=== PATIENT | female | born 1990 | race Caucasian/White ===

== ENCOUNTER 2016-11-26 14:55 | Inpatient (IN) | payer MEDICAID ==
[2016-11-26] VITALS (12 sets, daily range): BP systolic 128–218; BP diastolic 93–115; PULSE 70–102; RESP 16–18; TEMP 97.4–98.1; O2SAT 98–100
[~2016-11-26 14:55] MED LIST: Z.0.BCPILL
[2016-11-26] MEDS: LACTATED RINGER'S 1000 ML INJ 1,000 ML IV SCH ×5 (15:00→20:34)
[2016-11-26] MEDS ORDERED: SODIUM CHLORIDE 0.9% FLUSH 5 ML FLUSH IVF PRN (15:15)
[2016-11-26] MEDS ORDERED: ZOLPIDEM TARTRATE 5 MG TAB PO PRN (15:15)
[2016-11-26] MEDS ORDERED: ONDANSETRON ODT 4 MG TAB PO PRN (15:15)
[2016-11-26] MEDS ORDERED: LACTATED RINGER'S 1000 ML INJ 1,000 ML IV PRN (15:16)
[2016-11-26] MEDS ORDERED: NIFEdipine 10 MG CAP ONE (15:25)
--- NOTE | 2016-11-26 15:26 | HHI.HP ---
HPI Chief Complaint admission for hellp syndrome Date Seen: Nov 24, 2016 Travel History International Travel<30 Days: No Contact w/Intl Traveler<30Days: No Known Affected Area: No History of Present Illness HPI 26 yo G1 with iup at 36w3 d seen in clinic 2 days ago with c/o ruq pain. Her BP was 124/64, above her baseline, and she had 3+ protein on urine dip. She had in previous weeks had acid reflux but did not note any issues over the last week. She did note ruq pain that was intermitent. She denied JARVIS/vision changes. She had noted some increase in edema. She was given lab slip for PIH labs, amylase and lipase as well as referral for RUQ u/s. Labs resulted today significant for Hgb 10.4, plt 82, UA 7, AST 76, ALT 91, Normal amylase and lipase. Random urine protein 3163 and creatinine 53, markedly elevated protein to cr ration. Serum Cr normal 0.73. Pt was called and told it ws urgent to present for labor and delivery for bp evaluation, repetition of labs, and likely delivery based on assessment on presentation. Para: 0 : 1 History Past Medical History Medical History: Denies Significant Hx Obstetric History Obstetric History G1 abn 1 hour, normal 3 hr gtt Past Surgical History Surgical History: No Previous Surgery Family History Family History: Negative Social History Alcohol Use: No Tobacco Use: No Substance Abuse: No Allergies-Medications (Allergen,Severity, Reaction): Coded Allergies: Shellfish (Verified Allergy, Severe, 11/26/16) Comments self fish allergy Home Meds Reported Medications Miscellaneous ( Control Pills) Tab 09/11/06 Review of Systems General / Constitutional: No: Fever, Weight Gain, Chills, Other Eyes: No: Diploplia, Blurred Vision, Visual changes, Pain, Photophobia HENT: No: Headaches, Vertigo, Lightheadedness Cardiovascular: Edema, No: Irregular Rhythm, Chest Pain or Discomfort, Palpitations, Tachycardia, Syncope, Varicosities, Cyanosis Respiratory: No: Cough, Short of Breath, Other Gastrointestinal: Nausea, Abdominal Pain, No: Vomiting, Diarrhea Genitourinary: No: Decreased Urinary Output, Oliguria Musculoskeletal: No: Limited ROM, Weakness, Cramping, Edema, Pain Skin: No Rash, No Itching, No Dryness, No Lumps, No Change in Pigmentation, No Change in Nails, No Alopecia, No Lesions Neurologic: No: Weakness, Dizziness, Syncope, Focal Abnormalities, Coordination Problem, Headache, Slurred Speech, Seizures Psychiatric: No: Depression, Suicidal Ideations, Homicidal Ideation Endocrine: No: Heat Intolerance, Cold Intolerance, Polydipsia, Polyuria, Other Physical Exam Narrative GENERAL: Well-nourished, well-developed patient. SKIN: Warm and dry. HEAD: Normocephalic and atraumatic. EYES: No scleral icterus. No injection or drainage. ENT: No nasal drainage noted. Mucous membranes pink. Airway patent. NECK: Supple, trachea midline. No JVD. CARDIOVASCULAR: Regular rate and rhythm without murmurs, gallops, or rubs. RESPIRATORY: Breath sounds equal bilaterally. No accessory muscle use. ABDOMEN/GI: Abdomen soft, RUQ tenderness, bowel sounds present, no rebound, no guarding Gravid to36 weeks size GENITOURINARY: External Genitalia: intact and normal in appearance BUS glands: [-] Cervix:25/-3, posterior Presentation:cephalic Membranes: [intact Uterine Contractions: irreg FHT's: Category: I, 130's, + A, neg decel, mod variability, NST in progress Decels: [-] EXTREMITIES: No cyanosis or edema. BACK: Nontender without obvious deformity. No CVA tenderness. NEUROLOGICAL: Awake and alert. Motor and sensory grossly within normal limits. Five out of 5 muscle strength in all muscle groups. Normal speech. Data Data Vital Signs Reviewed: Yes (initial BP 218/115) Orders Admit To Inpatient (11/26/16 ) Diet Npo (11/26/16 Dinner) ^ Heart DAXA.QD (11/26/16 15:13) Activity Bed Rest With Brp (11/26/16 15:13) Total Protein 24hr Urine (11/26/16 15:13) Urinalysis - C+S If Indicated (11/26/16 15:13) Lactated Ringer's 1000 Ml Inj (Lr 1000 M (11/26/16 16:00) Sodium Chloride 0.9% Flush (Ns Flush) (11/26/16 21:00) Sodium Chloride 0.9% Flush (Ns Flush) (11/26/16 15:15) Zolpidem (Ambien) (11/26/16 15:15) Ondansetron Odt (Zofran Odt) (11/26/16 15:15) Ob/Psych Drug Screen, Urine (11/26/16 15:13) Hold Clot (11/26/16 15:13) Inpatient Certification (11/26/16 ) Specimen To Be Collected PRN (11/26/16 15:13) Vital Signs (Adult) .Per protocol (11/26/16 15:16) ^ Heart (11/26/16 15:16) ^ Amnioinfusion (11/26/16 15:16) Urinary Catheter Management .ONCE (11/26/16 15:16) Lactated Ringer's 1000 Ml Inj (Lr 1000 M (11/26/16 15:16) Sodium Chlorid 0.9% 500 Ml Inj (Ns 500 M (11/26/16 15:30) Sodium Chlor 0.9% 1000 Ml Inj (Ns 1000 M (11/26/16 15:36) Lidocaine 1% Inj (50 Ml) (Xylocaine 1% I (11/26/16 15:30) Citric Acid-Sodium Citrate Liq (Bicitra (11/26/16 15:30) Fentanyl Inj (Fentanyl Inj) (11/26/16 15:30) Fentanyl Inj (Fentanyl Inj) (11/26/16 15:30) Abo/Rh Blood Type (11/26/16 15:16) Type And Screen (11/26/16 15:16) Resp Oxygen Non Rebreathe Mask (11/26/16 ) ^ Epidural / Intrathecal Infus (11/26/16 15:16) Oxytocin 30 Units-500ml Premix (Pitocin (11/26/16 15:30) Lidocaine 1% Inj (50 Ml) (Xylocaine 1% I (11/26/16 15:30) Light Mineral Oil (Muri-Lube Oil) (11/26/16 15:30) Protein Creat Ratio, Random Ur (11/26/16 15:17) Basic Metabolic Panel (Bmp) (11/26/16 15:19) Complete Blood Count With Diff (11/26/16 15:19) Creatinine 24 Hr Urine (11/26/16 15:19) Hepatic Functional Panel (11/26/16 15:19) Uric Acid (11/26/16 15:19) Assessment/Plan Assessment and Plan 26 yo G1 with iup at 36w3d admitted to L&D with HELLP syndrome. Outpatient labs significant for Elevated liver enzymes, uric acid, P:C, and low platelets. She additionally has severe bp now. Pt evaluated by Dr. Novak on L&D; discussed BP and abn labs, discussed proceeding with CD given severity of HELLP syndrome. Pt in agreement with plan of care. L&D, nursery and anesthesia made aware of plan; preoperative medications ordered. Based on results of platelets, may need general anesthesia Simran Perez MD Nov 26, 2016 15:26
[2016-11-26] MEDS ORDERED: MINERAL OIL 10 ML VIAL TOPICAL PRN (15:30)
[2016-11-26] MEDS ORDERED: LIDOCAINE HCL 1% 50 ML VIAL INFIL PRN (15:30)
[2016-11-26] MEDS ORDERED: OXYTOCIN 30 UNITS-500ML PREMIX 500 ML IV ONE ×2 (15:30→17:00)
[2016-11-26] MEDS ORDERED: SODIUM CHLORID 0.9% 500 ML INJ 500 ML IV PRN (15:30)
[2016-11-26] MEDS ORDERED: CITRIC ACID-SODIUM CITRATE LIQ 30 ML UDC PO SCH ×2 (15:30→17:00)
[2016-11-26] MEDS ORDERED: LIDOCAINE HCL 1% 50 ML VIAL I-DERMAL PRN (15:30)
[2016-11-26] MEDS ORDERED: ceFAZolin INJ 1,000 MG VIAL ONE (15:31)
[2016-11-26] MEDS ORDERED: OXYTOCIN 10 UNIT/ML AMP ONE (15:31)
[2016-11-26] MEDS ORDERED: SODIUM CHLOR 0.9% 1000 ML INJ 1,000 ML IV PRN (15:36)
[2016-11-26 15:42] LABS: AUTOMATED NEUTROPHIL # 8.1 TH/MM3 (1.8-7.7); BASOPHIL # 0.1 TH/MM3 (0-0.2); BASOPHIL % 0.5 % (0.0-2.0); EOSINOPHIL # 0.1 TH/MM3 (0-0.4); EOSINOPHIL % 1.1 % (0.0-4.0); HEMATOCRIT 36.4 % (35.0-46.0); HEMO FLAGS DIFF FINAL; LYMPH % 20.7 % (9.0-44.0); LYMPHOCYTE # 2.4 TH/MM3 (1.0-4.8); MEAN CELL VOLUME 85.1 FL (80.0-100.0); MEAN CORPUSCULAR HEMOGLOBIN 28.6 PG (27.0-34.0); MEAN CORPUSCULAR HGB CONC 33.6 % (32.0-36.0); MONO % 7.6 % (0.0-8.0); NEUT % 70.1 % (16.0-70.0); PLATELET COUNT 105 TH/MM3 (150-450); RED BLOOD COUNT 4.28 MIL/MM3 (4.00-5.30); RED CELL DISTRIBUTION WIDTH 15.4 % (11.6-17.2); WHITE BLOOD COUNT 11.6 TH/MM3 (4.0-11.0)
[2016-11-26 15:45] LABS: BACTERIA, URINE FEW /hpf; BLOOD, URINE SMALL (NEG); GLUCOSE,URINE NEG (NEG); HYALINE CAST, URINE 1 /lpf (RARE); KETONE, URINE NEG (NEG); NITRITE,URINE NEG (NEG); SQUAMOUS EPITHELIAL CELL URINE 15 /hpf (0-5); URINE COLOR YELLOW (YELLW/STRAW)
[2016-11-26] MEDS ORDERED: LACTATED RINGER'S 1000 ML INJ 1,000 ML IV ONE (15:45)
[2016-11-26 15:47] LABS: COMMENT (UR) CULT NOT INDICATED; CULTURE IF INDICATED CULT NOT INDICATED
[2016-11-26 15:49] LABS: AMPHETAMINE, URINE NEG (NEG); BARBITURATES, URINE NEG (NEG); COCAINE, URINE NEG (NEG)
[2016-11-26 15:55] LABS: BICARBONATE 21.7 MEQ/L (21.0-32.0); POTASSIUM 4.5 MEQ/L (3.5-5.1); URIC ACID 6.8 MG/DL (2.6-6.0)
[2016-11-26 15:58] LABS: INDIRECT BILIRUBIN 0.2 MG/DL (0.0-0.8); TOTAL BILIRUBIN ADULT 0.3 MG/DL (0.2-1.0)
[2016-11-26] MEDS ORDERED: EPIDURAL-NALOXONE HCL 0.4 MG/ML AMP IV PRN (15:58)
[2016-11-26] MEDS ORDERED: EPIDURAL-DIPHENHYDRAMINE HCL 50 MG CAP PO PRN (15:58)
[2016-11-26] MEDS ORDERED: EPIDURAL-DO NOT ADMINISTER ANTICOAGULANTS XX PRN (15:58)
[2016-11-26] MEDS ORDERED: EPIDURAL-DIPHENHYDRAMINE HCL 50 MG/ML VIAL IV PUSH PRN (15:58)
[2016-11-26] MEDS ORDERED: EPIDURAL-NO SYSTEMIC NARCOTICS XX PRN (15:58)
--- NOTE | 2016-11-26 16:59 | PD.OB.DELI ---
Procedure Note Section Procedure Performed by Shiva Novak Procedure: Primary Low Transverse Sec Indication for delivery: Maternal medical problems (HELLP) Informed consent obtained: For anesthesia, For procedure Confirmed correct: Patient, Procedure, Time-out taken Anesthesia: Spinal Medication prior to procedure: As documented in eMAR Monitoring during procedure: Blood pressure monitoring, phototypesetting equipment monitor, doppler, Pulse oximetry Urinary catheter: Inserted using sterile technique, To dependent drainage Operative Features Skin Incision: Pfannenstiel Uterine Incision: Low transverse w/knife / scissors Membranes Ruptured: Artificially Presentation: Occiput anterior Delivery of infant: Uneventful : Female One Minute : 8 Five Minute : 9 Weight: 2540 GM Status of : Viable, Cord blood Placenta delivered: Intact, Sent to pathology Medications: Antibiotics, Oxytocin Procedure tolerated: Well Maternal Condition: Stable Condition: Stable Shiva Novak MD Nov 26, 2016 16:59
[2016-11-26] MEDS ORDERED: oxyCODONE/ACETAMINOPHEN 5 MG/325 MG TAB PO PRN ×2 (17:00)
[2016-11-26] MEDS ORDERED: DOCUSATE SODIUM 50 MG/SENNA 8.6 MG TAB PO PRN (17:00)
[2016-11-26] MEDS ORDERED: SIMETHICONE 80 MG CHEWABLE TAB PO PRN (17:00)
[2016-11-26] MEDS ORDERED: SODIUM CHLORIDE 0.9% FLUSH 5 ML FLUSH IV PRN ×2 (17:00)
[2016-11-26] MEDS ORDERED: ONDANSETRON HCL 4 MG/2 ML VIAL IV PUSH PRN (17:00)
[2016-11-26] MEDS ORDERED: CALCIUM GLUCONATE 10% 1 GM/10 ML VIAL IV PUSH PRN (17:00)
[2016-11-26] MEDS ORDERED: MORPHINE SULFATE PF 5 MG/10 ML VIAL ONE (17:11)
[2016-11-26] MEDS ORDERED: ONDANSETRON HCL 4 MG/2 ML VIAL ONE (17:12)
[2016-11-26] MEDS ORDERED: MAGNESIUM SULFATE 40 GM PREMIX 1,000 ML ONE (17:17)
[2016-11-26] MEDS: MAGNESIUM SULFATE 40 GM PREMIX 1,000 ML IV SCH (17:22)
[2016-11-26] MEDS ORDERED: LABETALOL HCL 100 MG/20 ML VIAL IV PUSH PRN (18:00)
--- NOTE | 2016-11-26 19:26 | MP ---
cc: SHIVA MATHEW M.D. DATE OF SURGERY: 11/26/2016. PREOPERATIVE DIAGNOSIS: The patient is 36 weeks gestation with HELP syndrome, elevated liver enzymes, low platelets, hypertension and proteinuria. POSTOPERATIVE DIAGNOSIS: The patient is 36 weeks gestation with HELP syndrome, elevated liver enzymes, low platelets, hypertension and proteinuria. OPERATION: Primary low transverse delivery of a viable female . SURGEON: Shiva Mathew MD. ANESTHESIA: Spinal. ESTIMATED BLOOD LOSS: 700 cc. DRAINS: Cortez to gravity. OPERATIVE FINDINGS: 1. Female infant delivered from ROT position. No nuchal cord entanglement. Clear fluid. Intact placenta. 2. Normal uterus, ovaries and adnexa. 3. The baby's Apgars were 8 at one minute and 9 at five. The baby weighed 2450 grams. INDICATIONS FOR THE PROCEDURE: The patient was seen in the office for concerns for pre-eclampsia. Laboratory evaluation included platelet count, which was 80. AST and ALT were elevated along with her uric acid and elevated urine protein. The patient was called at home to come emergently to the hospital for re-evaluation upon which the patient's blood pressure was 210/114, platelets were ordered emergently and returned 105. The patient had severe right upper quadrant pain. heart rate tracing was category I given the findings, the patient was 1 cm primigravida, and primary section was recommended and the patient agreed. DESCRIPTION OF THE PROCEDURE IN DETAIL: The patient received Ancef 2 grams prophylactically. She went back in stable condition with improved blood pressure after administration of Procardia. She had a spinal anesthetic placed without complication and a good result. Blood pressures normalized. She had a Cortez catheter inserted by sterile technique and sequentials placed all extremities for VTE prophylaxis. She was then prepped and draped. A time-out was conducted and agreed by all present in the room. The patient had excellent result with her anesthetic. No significant pain complaints. She was alert and oriented. A Pfannenstiel's incision was utilized and it was carried through the skin down through the subcutaneous layer identifying the fascia in the midline and extending the midline incision laterally on the fascia and allowing dissection of the rectus fascia from the muscle. The muscle was in the midline sharply. Peritoneum was easily identified and opened sharply. The incision was extended bluntly. The bladder blade was placed over the pubic symphysis. A transverse incision was made in the lower uterine segment without difficulty. Clear fluid was noted. The incision was extended allowing delivery of the vertex. The infant was delivered in toto with good tone and cry. Oropharyngeal suction was performed on the operative field. The infant was taken to the isolette by the NICU staff in attendance. Cord segment was obtained for cord blood type and then the placenta was removed intact with trailing membranes. No retained tissue was noted. The uterus was katie with the use of IV Pitocin. The uterus was closed with a double layer. The first layer was a running locking suture of 0 Monocryl followed by a second imbricating suture of 0 Monocryl with good result. No active bleeding. No hematoma. The pelvis was irrigated. All free blood and clot was removed. Re-examination demonstrated good closure and hemostasis. Full count was made and correct. The peritoneal layer was then closed with a running suture of 2-0 Monocryl. Muscle was approximated loosely with an interrupted mattress suture just above the pyramidalis muscle and then the fascia was closed with a #0 Vicryl in a simple running fashion. The subcutaneous layer was examined. Any active bleeding was cauterized and then it was closed reapproximating the space with a 2-0 Monocryl. Ricardo were used to reapproximate the skin edge only. A pressure dressing was applied. Final count was correct. The patient was stable. The was taken to the NICU in stable condition on room air. MD HAFSA Craven/LUDMILA /5:09 PM /7:14 PM
[2016-11-26] MEDS ORDERED: LABETALOL HCL 200 MG TAB PO ONE (19:45)
[2016-11-26] MEDS: SODIUM CHLORIDE 0.9% FLUSH 5 ML FLUSH IV SCH (20:33)
[2016-11-26] MEDS ORDERED: SODIUM CHLORIDE 0.9% FLUSH 5 ML FLUSH IV SCH (21:00)
[2016-11-26] MEDS ORDERED: SODIUM CHLORIDE 0.9% FLUSH 5 ML FLUSH IVF SCH (21:00)
[2016-11-27] VITALS (19 sets, daily range): BP systolic 128–155; BP diastolic 80–98; PULSE 64–76; RESP 16–18; TEMP 97.7–99.6
[2016-11-27] MEDS ORDERED: OXYTOCIN 30 UNITS-500ML PREMIX 500 ML IV PRN (03:00)
[2016-11-27] MEDS: LACTATED RINGER'S 1000 ML INJ 1,000 ML IV SCH ×8 (06:19→23:46)
[2016-11-27] MEDS: LABETALOL HCL 200 MG TAB PO SCH ×2 (08:49→20:29)
[2016-11-27 09:55] LABS: AUTOMATED NEUTROPHIL # 9.5 TH/MM3 (1.8-7.7); BASOPHIL % 0.4 % (0.0-2.0); EOSINOPHIL % 0.3 % (0.0-4.0); HEMATOCRIT 26.9 % (35.0-46.0); LYMPH % 14.5 % (9.0-44.0); LYMPHOCYTE # 1.7 TH/MM3 (1.0-4.8); MEAN CELL VOLUME 84.5 FL (80.0-100.0); MEAN CORPUSCULAR HEMOGLOBIN 28.5 PG (27.0-34.0); MEAN CORPUSCULAR HGB CONC 33.8 % (32.0-36.0); MONO % 5.1 % (0.0-8.0); NEUT % 79.7 % (16.0-70.0); PLATELET COUNT 62 TH/MM3 (150-450); RED BLOOD COUNT 3.19 MIL/MM3 (4.00-5.30); RED CELL DISTRIBUTION WIDTH 15.4 % (11.6-17.2); WHITE BLOOD COUNT 11.9 TH/MM3 (4.0-11.0)
[2016-11-27 09:58] LABS: HEMO FLAGS AUTO DIFF
[2016-11-27 10:39] LABS: BICARBONATE 25.1 MEQ/L (21.0-32.0); CALCIUM-PROTEIN CORRECTED 7.9 MG/DL (8.5-10.1); POTASSIUM 4.6 MEQ/L (3.5-5.1); TOTAL BILIRUBIN ADULT 0.3 MG/DL (0.2-1.0)
[2016-11-27 10:44] LABS: SCAN/DIFF AUTO DIFF CONFIRMED
--- NOTE | 2016-11-27 11:37 | HHI.OB ---
Subjective Post Operative Day: 1 Remarks POD#!. HELLP Sx, stable. Denies visual changes or h/a, RUQ pain has resolved Objective Vitals/I&O Vital Signs Date Time Temp Pulse Resp B/P Pulse Ox O2 Delivery O2 Flow Rate FiO2 11/27/16 10:01 64 148/85 11/27/16 10:00 18 11/27/16 09:01 64 149/80 11/27/16 08:41 18 11/27/16 08:01 64 155/88 11/27/16 06:00 75 128/92 11/27/16 05:00 70 142/89 11/27/16 04:00 97.7 16 11/27/16 04:00 64 139/89 11/27/16 03:01 72 137/86 11/27/16 02:01 68 138/87 11/27/16 01:00 64 136/88 11/27/16 00:00 76 142/89 11/26/16 23:01 78 135/103 11/26/16 21:01 102 133/93 11/26/16 20:58 97 128/94 11/26/16 18:45 16 11/26/16 18:41 79 158/99 11/26/16 18:15 97.6 11/26/16 18:00 94 157/107 11/26/16 18:00 97.5 16 98 11/26/16 17:45 86 11/26/16 17:45 97.5 16 153/103 99 11/26/16 17:30 97.4 16 98 11/26/16 17:30 89 153/99 11/26/16 17:07 142/95 11/26/16 17:07 79 18 100 11/26/16 15:24 70 213/110 11/26/16 15:18 98.1 18 11/26/16 15:18 78 218/115 Result Diagram: 11/27/16 0900 11/27/16 09 Objective Remarks GENERAL: Well-nourished, well-developed patient. CARDIOVASCULAR: Regular rate and rhythm without murmurs, gallops, or rubs. RESPIRATORY: Breath sounds equal bilaterally. No accessory muscle use. ABDOMEN/GI: Abdomen soft, non-tender, bowel sounds present. Incision: Clean, dry and intact. Fundus: Firm, non-tender at umbilicus. GENITOURINARY: Light to moderate bleeding. EXTREMITIES: No cyanosis or edema, non-tender, without signs of DVT. Medications and IVs Current Medications Medications (Trade) Dose Ordered Sig/Tierney Route Start Time Stop Time Status Last Admin (Lr 1000 ml Inj) 1,000 ml @ 75 mls/hr [id number] IV 11/26/16 16:00 11/27/16 08:51 (Ambien) 5 mg HS PRN PO 11/26/16 15:15 Ondansetron HCl 4 mg 4 mg Q6H PRN PO 11/26/16 15:15 Lactated Ringer's 1,000 ml @ 3,000 mls/hr Q20M PRN IV 11/26/16 15:16 Sodium Chloride 500 ml @ 1,000 mls/hr ONCE PRN IV 11/26/16 15:30 11/27/16 15:29 (NS 1000 ml Inj) 1,000 ml @ 100 mls/hr Q10H PRN IV 11/26/16 15:36 (fentaNYL INJ) 50 mcg Q1H PRN IV PUSH 11/26/16 15:30 (fentaNYL INJ) 100 mcg Q1H PRN IV PUSH 11/26/16 15:30 Mineral Oil 10 ml 10 ml UNSCH PRN TOPICAL 11/26/16 15:30 Lactated Ringer's 1,000 ml @ 150 mls/hr Q6H40M IV 11/26/16 16:00 11/27/16 08:52 (Lr 1000 ml Inj) 1,000 ml @ 100 mls/hr Q10H IV 11/26/16 21:59 11/27/16 17:58 (Mylicon Chew) 80 mg QID PRN PO 11/26/16 17:00 (Motrin) 600 mg Q6H PRN PO 11/26/16 17:00 (Percocet 5-325 Mg) 1 tab Q4H PRN PO 11/26/16 17:00 (Percocet 5-325 Mg) 2 tab Q4H PRN PO 11/26/16 17:00 (Danii-Colace) 2 tab Q12H PRN PO 11/26/16 17:00 (M-M-R Ii Inj) 0.5 ml ONCE ONCE SQ 11/27/16 16:00 11/27/16 16:01 (Boostrix Inj) 0.5 ml ONCE ONCE IM 11/27/16 16:00 11/27/16 16:01 Ondansetron HCl 4 mg 4 mg Q6H PRN IV PUSH 11/26/16 17:00 (Lr 1000 ml Inj) 1,000 ml @ 75 mls/hr [id number] IV 11/26/16 16:59 (NS Flush) 2 ml UNSCH PRN IV 11/26/16 17:00 IV Flush 2 ml 2 ml BID IV 11/26/16 21:00 (Magnesium Sulfate 40 Gm Premix) 1,000 ml @ 50 mls/hr Q20H IV 11/26/16 16:59 11/26/16 17:22 (Calcium Gluconate Inj) 1 gm UNSCH PRN IV PUSH 11/26/16 17:00 (Trandate) 200 mg BID PO 11/27/16 09:00 11/27/16 08:49 Miscellaneous Information NO SYSTEMIC NARCOTICS TO BE GIVEN FO... UNSCH PRN XX 11/26/16 15:58 11/27/16 15:57 (Narcan Inj) 0.4 mg UNSCH PRN IV 11/26/16 15:58 11/27/16 15:57 (Benadryl Inj) 25 mg Q6H PRN IV PUSH 11/26/16 15:58 11/27/16 15:57 (Benadryl) 50 mg Q6H PRN PO 11/26/16 15:58 11/27/16 15:57 Miscellaneous Information ALL NURSING DEPARTMENTS UNSCH PRN XX 11/26/16 15:58 11/27/16 15:57 Assessment/Plan Assessment and Plan POD#1; 36 week ,s/p cd for HELLP Sx. decreased plt ct. @ 60. Discussed continued Mag. Sulfate IV until tomorrow, follow plt.ct Shiva Novak MD Nov 27, 2016 11:37
[2016-11-27] MEDS ORDERED: HYDROmorphone HCL 2 MG TAB PO PRN (11:45)
[2016-11-27] MEDS: MAGNESIUM SULFATE 40 GM PREMIX 1,000 ML IV SCH (13:24)
[2016-11-27 13:47] LABS: HEMATOCRIT 25.8 % (35.0-46.0); MEAN CELL VOLUME 83.2 FL (80.0-100.0); MEAN CORPUSCULAR HEMOGLOBIN 28.9 PG (27.0-34.0); MEAN CORPUSCULAR HGB CONC 34.7 % (32.0-36.0); PLATELET COUNT 66 TH/MM3 (150-450); RED BLOOD COUNT 3.11 MIL/MM3 (4.00-5.30); RED CELL DISTRIBUTION WIDTH 15.1 % (11.6-17.2); WHITE BLOOD COUNT 11.4 TH/MM3 (4.0-11.0)
[2016-11-27 13:49] LABS: REVIEW FLAG FINAL
[2016-11-27] MEDS ORDERED: DIPHTH/TETANUS/ACEL PERTUSSIS (BOOSTER) 0.5 ML VIAL/PFS IM ONE (16:00)
[2016-11-27] MEDS ORDERED: MEASLES, MUMPS, RUBELLA VACCINE 0.5 ML VIAL SQ ONE (16:00)
[2016-11-27] MEDS: SODIUM CHLORIDE 0.9% FLUSH 5 ML FLUSH IV SCH (20:30)
[2016-11-28] VITALS (16 sets, daily range): BP systolic 118–160; BP diastolic 78–101; PULSE 62–81; RESP 16–18; TEMP 98.2–98.5
[2016-11-28 07:15] LABS: AUTOMATED NEUTROPHIL # 9.6 TH/MM3 (1.8-7.7); BASOPHIL % 0.2 % (0.0-2.0); EOSINOPHIL # 0.1 TH/MM3 (0-0.4); EOSINOPHIL % 0.6 % (0.0-4.0); HEMATOCRIT 25.3 % (35.0-46.0); LYMPH % 12.1 % (9.0-44.0); LYMPHOCYTE # 1.4 TH/MM3 (1.0-4.8); MEAN CELL VOLUME 83.5 FL (80.0-100.0); MEAN CORPUSCULAR HEMOGLOBIN 28.7 PG (27.0-34.0); MEAN CORPUSCULAR HGB CONC 34.4 % (32.0-36.0); MONO % 6.1 % (0.0-8.0); PLATELET COUNT 60 TH/MM3 (150-450); RED BLOOD COUNT 3.03 MIL/MM3 (4.00-5.30); RED CELL DISTRIBUTION WIDTH 15.3 % (11.6-17.2); WHITE BLOOD COUNT 11.9 TH/MM3 (4.0-11.0)
[2016-11-28 07:37] LABS: HEMO FLAGS AUTO DIFF
[2016-11-28 07:45] LABS: BICARBONATE 27.7 MEQ/L (21.0-32.0); CALCIUM-PROTEIN CORRECTED 7.5 MG/DL (8.5-10.1); POTASSIUM 4.2 MEQ/L (3.5-5.1); TOTAL BILIRUBIN ADULT 0.3 MG/DL (0.2-1.0)
[2016-11-28] MEDS: amLODIPine BESYLATE 5 MG TAB PO SCH (08:37)
[2016-11-28] MEDS: LABETALOL HCL 200 MG TAB PO SCH ×2 (08:37→21:07)
[2016-11-28] MEDS: LACTATED RINGER'S 1000 ML INJ 1,000 ML IV SCH (08:37)
[2016-11-28 09:22] LABS: BANDS 2 % (0-6); CORRECTED NUCLEATED RBC 1 /100 WBC (0-0); NEUTROPHIL # MANUAL DIFF 9.8 TH/MM3 (1.8-7.7); POLYS (SEG NEUTROPHILS) 80 % (16-70); WBC DIFF SAMPLE 100
[2016-11-28 09:23] LABS: PLATELET ESTIMATE SMEAR LOW (NORMAL); PLATELET MORPHOLOGY NORMAL (NORMAL); SCAN/DIFF FINAL DIFF MANUAL
--- NOTE | 2016-11-28 09:29 | HHI.OB ---
Subjective Post Day: 2 Remarks POD#2, HELLP Sx, stable on Norvasc/Labetalol Objective Vitals/I&O Vital Signs Date Time Temp Pulse Resp B/P Pulse Ox O2 Delivery O2 Flow Rate FiO2 11/28/16 07:13 98.2 11/28/16 07:10 16 11/28/16 07:00 70 160/94 11/28/16 06:00 72 142/93 11/28/16 05:00 70 149/92 11/28/16 04:00 73 135/92 11/28/16 03:00 71 149/94 11/28/16 02:00 77 132/89 11/28/16 01:00 72 128/83 11/27/16 21:40 18 11/27/16 19:53 99.6 11/27/16 19:00 72 141/98 11/27/16 17:02 16 11/27/16 17:00 71 18 150/94 11/27/16 13:11 18 11/27/16 13:00 70 18 152/91 11/27/16 10:01 64 148/85 11/27/16 10:00 18 Objective Remarks GENERAL: Well-nourished, well-developed patient. CARDIOVASCULAR: Regular rate and rhythm without murmurs, gallops, or rubs. RESPIRATORY: Breath sounds equal bilaterally. No accessory muscle use. ABDOMEN/GI: Abdomen soft, non-tender. Fundus: Firm, non-tender at umbilicus. GENITOURINARY: Light to moderate bleeding. EXTREMITIES: No cyanosis or edema, non-tender, without signs of DVT. Medications and IVs Current Medications Medications (Trade) Dose Ordered Sig/Tierney Route Start Time Stop Time Status Last Admin (Lr 1000 ml Inj) 1,000 ml @ 75 mls/hr [id number] IV 11/26/16 16:00 11/28/16 08:37 (Ambien) 5 mg HS PRN PO 11/26/16 15:15 Ondansetron HCl 4 mg 4 mg Q6H PRN PO 11/26/16 15:15 Lactated Ringer's 1,000 ml @ 3,000 mls/hr Q20M PRN IV 11/26/16 15:16 (NS 1000 ml Inj) 1,000 ml @ 100 mls/hr Q10H PRN IV 11/26/16 15:36 (fentaNYL INJ) 50 mcg Q1H PRN IV PUSH 11/26/16 15:30 (fentaNYL INJ) 100 mcg Q1H PRN IV PUSH 11/26/16 15:30 Mineral Oil 10 ml 10 ml UNSCH PRN TOPICAL 11/26/16 15:30 (Lr 1000 ml Inj) 1,000 ml @ 150 mls/hr Q6H40M IV 11/26/16 16:00 11/27/16 08:52 (Mylicon Chew) 80 mg QID PRN PO 11/26/16 17:00 (Motrin) 600 mg Q6H PRN PO 11/26/16 17:00 (Percocet 5-325 Mg) 1 tab Q4H PRN PO 11/26/16 17:00 (Percocet 5-325 Mg) 2 tab Q4H PRN PO 11/26/16 17:00 (Danii-Colace) 2 tab Q12H PRN PO 11/26/16 17:00 Ondansetron HCl 4 mg 4 mg Q6H PRN IV PUSH 11/26/16 17:00 11/27/16 13:23 (Lr 1000 ml Inj) 1,000 ml @ 75 mls/hr [id number] IV 11/26/16 16:59 11/27/16 06:19 (NS Flush) 2 ml UNSCH PRN IV 11/26/16 17:00 (NS Flush) 2 ml BID IV 11/26/16 21:00 (Calcium Gluconate Inj) 1 gm UNSCH PRN IV PUSH 11/26/16 17:00 (Trandate) 200 mg BID PO 11/27/16 09:00 11/28/16 08:37 (Dilaudid) 1 mg Q4H PRN PO 11/27/16 11:45 (Norvasc) 5 mg DAILY PO 11/28/16 09:00 11/28/16 08:37 Assessment/Plan Assessment and Plan POD#2; 36 week ,s/p cd for HELLP Sx. Stable BPR stable on norvasc and labetalol; will advance care,stop mg. sulfate. Discharge Planning does NOT meet criteria Attending Attestation seen by Shiva Rodrigues MD Nov 28, 2016 09:29
[2016-11-28] MEDS: IBUPROFEN 600 MG TAB PO PRN ×2 (10:53→18:46)
[2016-11-29] MEDS: IBUPROFEN 600 MG TAB PO PRN ×2 (05:39→13:58)
[2016-11-29 05:55] LABS: MEAN CELL VOLUME 85.2 FL (80.0-100.0); MEAN CORPUSCULAR HEMOGLOBIN 28.4 PG (27.0-34.0); MEAN CORPUSCULAR HGB CONC 33.4 % (32.0-36.0); PLATELET COUNT 102 TH/MM3 (150-450); RED BLOOD COUNT 2.94 MIL/MM3 (4.00-5.30); RED CELL DISTRIBUTION WIDTH 16.6 % (11.6-17.2); REVIEW FLAG FINAL; WHITE BLOOD COUNT 12.5 TH/MM3 (4.0-11.0)
[2016-11-29 06:26] LABS: ALT (GPT) 95 U/L (10-53); AST (GOT) 64 U/L (15-37)
--- NOTE | 2016-11-29 08:07 | HHI.OB ---
Subjective Post Operative Day: 2 Remarks doing well, labs improving, ambulating, no JARVIS, no BV, no CP, BPs normalizing 136 /84-159/96 Objective Vitals/I&O Vital Signs Date Time Temp Pulse Resp B/P Pulse Ox O2 Delivery O2 Flow Rate FiO2 11/28/16 20:50 98.3 76 18 159/96 11/28/16 15:00 98.5 18 11/28/16 15:00 77 136/84 11/28/16 10:05 118/78 11/28/16 10:05 98.2 62 18 11/28/16 09:17 18 11/28/16 09:00 81 157/101 11/28/16 08:36 18 Result Diagram: 11/29/16 0547 11/28/16 0550 Objective Remarks GENERAL: Well-nourished, well-developed patient. CARDIOVASCULAR: Regular rate and rhythm without murmurs, gallops, or rubs. RESPIRATORY: Breath sounds equal bilaterally. No accessory muscle use. ABDOMEN/GI: Abdomen soft, non-tender, bowel sounds present. Incision: Clean, dry and intact. Fundus: Firm, non-tender at umbilicus. GENITOURINARY: Light to moderate bleeding. EXTREMITIES: No cyanosis or edema, non-tender, without signs of DVT. Medications and IVs Current Medications Medications (Trade) Dose Ordered Sig/Tierney Route Start Time Stop Time Status Last Admin (Lr 1000 ml Inj) 1,000 ml @ 75 mls/hr [id number] IV 11/26/16 16:00 11/28/16 08:37 (Ambien) 5 mg HS PRN PO 11/26/16 15:15 Ondansetron HCl 4 mg 4 mg Q6H PRN PO 11/26/16 15:15 Lactated Ringer's 1,000 ml @ 3,000 mls/hr Q20M PRN IV 11/26/16 15:16 (NS 1000 ml Inj) 1,000 ml @ 100 mls/hr Q10H PRN IV 11/26/16 15:36 (fentaNYL INJ) 50 mcg Q1H PRN IV PUSH 11/26/16 15:30 (fentaNYL INJ) 100 mcg Q1H PRN IV PUSH 11/26/16 15:30 Mineral Oil 10 ml 10 ml UNSCH PRN TOPICAL 11/26/16 15:30 (Lr 1000 ml Inj) 1,000 ml @ 150 mls/hr Q6H40M IV 11/26/16 16:00 11/27/16 08:52 (Mylicon Chew) 80 mg QID PRN PO 11/26/16 17:00 (Motrin) 600 mg Q6H PRN PO 11/26/16 17:00 11/29/16 05:39 (Percocet 5-325 Mg) 1 tab Q4H PRN PO 11/26/16 17:00 (Percocet 5-325 Mg) 2 tab Q4H PRN PO 11/26/16 17:00 (Danii-Colace) 2 tab Q12H PRN PO 11/26/16 17:00 Ondansetron HCl 4 mg 4 mg Q6H PRN IV PUSH 11/26/16 17:00 11/27/16 13:23 (Lr 1000 ml Inj) 1,000 ml @ 75 mls/hr [id number] IV 11/26/16 16:59 11/27/16 06:19 (NS Flush) 2 ml UNSCH PRN IV 11/26/16 17:00 (NS Flush) 2 ml BID IV 11/26/16 21:00 (Calcium Gluconate Inj) 1 gm UNSCH PRN IV PUSH 11/26/16 17:00 (Trandate) 200 mg BID PO 11/27/16 09:00 11/28/16 21:07 (Dilaudid) 1 mg Q4H PRN PO 11/27/16 11:45 (Norvasc) 5 mg DAILY PO 11/28/16 09:00 11/28/16 08:37 Assessment/Plan Assessment and Plan POD#3; 36 week ,s/p cd for HELLP Sx. Stable BPR stable on norvasc and labetalol; continue post op care d/c home in am. Discharge Planning does NOT meet criteria Attending Attestation pt seen by Emi Rico MD Nov 29, 2016 08:07
[2016-11-29] MEDS: LABETALOL HCL 200 MG TAB PO SCH ×2 (08:51→22:25)
[2016-11-29] MEDS: amLODIPine BESYLATE 5 MG TAB PO SCH (08:51)
[2016-11-29] MEDS: SODIUM CHLORIDE 0.9% FLUSH 5 ML FLUSH IV SCH (09:00)
[2016-11-29 09:55] VITALS: BP 132/90; PULSE 81; RESP 18
[2016-11-29 20:13] VITALS: BP 149/93; PULSE 72; RESP 16; TEMP 98.5
[2016-11-30] MEDS: IBUPROFEN 600 MG TAB PO PRN (01:37)
[2016-11-30] MEDS ORDERED: IBUP-232 PO (08:07)
[2016-11-30] MEDS ORDERED: AMLO5 PO (08:07)
[2016-11-30] MEDS ORDERED: LABE200T2 PO (08:07)
[2016-11-30] MEDS ORDERED: SENN1TAB PO (08:07)
[2016-11-30] MEDS ORDERED: OXYC1TAB63 PO (08:07)
--- NOTE | 2016-11-30 08:12 | HHI.DCPOC ---
Discharge Care Plan Diagnosis: (1) S/P primary low transverse Your Health Problems Are: delivery Report Symptoms to Your Doctor -Temperate above 100.5 degrees -Redness, of incision or excessive or foul smelling drainage -Unusual pain or calf pain -Increased vaginal bleeding -Painful or difficulty urinating -Feelings of extreme sadness or anxiety after 2 weeks Goals to Promote Your Health * To prevent worsening of your condition and complications * To maintain your health at the optimal level Directions to Meet Your Goals Take your medications as prescribed Follow your dietary instruction Follow activity as directed Ensure plenty of rest for recovery Drink fluids for hydration Keep your appointments as scheduled Take your immunizations and boosters as scheduled If your symptoms worsen call your PCP, if no PCP go to Urgent Care Center or Emergency Room Smoking is Dangerous to Your Health. Avoid second hand smoke Call the 24-hour crisis hotline for domestic abuse at Alla Phoenix MD Nov 30, 2016 08:12
--- NOTE | 2016-11-30 08:14 | HHI.OB ---
Subjective Post Operative Day: 3 Remarks doing much better, ambulating, tolerating diet, voiding, passing flatus Objective Vitals/I&O Vital Signs Date Time Temp Pulse Resp B/P Pulse Ox O2 Delivery O2 Flow Rate FiO2 11/29/16 20:13 149/93 11/29/16 20:13 98.5 72 16 11/29/16 09:55 81 18 132/90 Result Diagram: 11/29/16 0547 11/28/16 0550 Objective Remarks GENERAL: Well-nourished, well-developed patient. CARDIOVASCULAR: Regular rate and rhythm without murmurs, gallops, or rubs. RESPIRATORY: Breath sounds equal bilaterally. No accessory muscle use. ABDOMEN/GI: Abdomen soft, non-tender, bowel sounds present. Incision: Clean, dry and intact. christin in place. Fundus: Firm, non-tender at umbilicus. GENITOURINARY: Light to moderate bleeding. EXTREMITIES: No cyanosis or edema, non-tender, without signs of DVT. Medications and IVs Current Medications Medications (Trade) Dose Ordered Sig/Tierney Route Start Time Stop Time Status Last Admin (Lr 1000 ml Inj) 1,000 ml @ 75 mls/hr [id number] IV 11/26/16 16:00 11/28/16 08:37 (Ambien) 5 mg HS PRN PO 11/26/16 15:15 Ondansetron HCl 4 mg 4 mg Q6H PRN PO 11/26/16 15:15 Lactated Ringer's 1,000 ml @ 3,000 mls/hr Q20M PRN IV 11/26/16 15:16 (NS 1000 ml Inj) 1,000 ml @ 100 mls/hr Q10H PRN IV 11/26/16 15:36 (fentaNYL INJ) 50 mcg Q1H PRN IV PUSH 11/26/16 15:30 (fentaNYL INJ) 100 mcg Q1H PRN IV PUSH 11/26/16 15:30 Mineral Oil 10 ml 10 ml UNSCH PRN TOPICAL 11/26/16 15:30 (Lr 1000 ml Inj) 1,000 ml @ 150 mls/hr Q6H40M IV 11/26/16 16:00 11/27/16 08:52 (Mylicon Chew) 80 mg QID PRN PO 11/26/16 17:00 (Motrin) 600 mg Q6H PRN PO 11/26/16 17:00 11/30/16 01:37 (Percocet 5-325 Mg) 1 tab Q4H PRN PO 11/26/16 17:00 (Percocet 5-325 Mg) 2 tab Q4H PRN PO 11/26/16 17:00 (Danii-Colace) 2 tab Q12H PRN PO 11/26/16 17:00 Ondansetron HCl 4 mg 4 mg Q6H PRN IV PUSH 11/26/16 17:00 11/27/16 13:23 (Lr 1000 ml Inj) 1,000 ml @ 75 mls/hr [id number] IV 11/26/16 16:59 11/27/16 06:19 (NS Flush) 2 ml UNSCH PRN IV 11/26/16 17:00 (NS Flush) 2 ml BID IV 11/26/16 21:00 (Calcium Gluconate Inj) 1 gm UNSCH PRN IV PUSH 11/26/16 17:00 (Trandate) 200 mg BID PO 11/27/16 09:00 11/29/16 22:25 (Dilaudid) 1 mg Q4H PRN PO 11/27/16 11:45 (Norvasc) 5 mg DAILY PO 11/28/16 09:00 11/29/16 08:51 Assessment/Plan Assessment and Plan POD#4; 36 week ,s/p cd for HELLP Sx. Stable BP stable & improved on norvasc and labetalol meeting all d/c criteria d/c to home today with 1 wk f/u in office for BP check Discharge Planning home today Alla Phoenix MD Nov 30, 2016 08:14
[2016-11-30 08:41] VITALS: BP 142/90; PULSE 88; RESP 18; TEMP 97.9
[2016-12-02 13:02] LABS: BATH SALTS (MDPV) UR NEG (NEG); ECSTASY (MDMA) UR NEG (NEG); HEROIN (6-ACETYLMORPHINE) UR NEG (NEG); K2 SPICE UR NEG (NEG); OBMETHADONE UR NEG (NEG); OXYCODONE (PERCODAN) NEG (NEG); PHENCYCLIDINE URINE NEG (NEG)
== END 2016-11-30 11:55 | disposition home or self-care (01) | DRG 766 ==
LOC: H2EA 14:55 → OBSVTOIN 15:30 → H1EA 11-28 10:17
PROVIDERS: ADMIT Obstetrics & Gynecology; ATTEND Obstetrics & Gynecology
PROC: 10D00Z1 Extraction of Products of Conception, Low, Open Approach (ICD-10-PCS; principal; 2016-11-26)
DX: O14.23 HELLP syndrome (HELLP), third trimester (principal); K21.9 Gastro-esophageal reflux disease without esophagitis; O99.613 Diseases of the digestive system complicating pregnancy, third trimester; Z37.0 Single live birth; Z3A.36 36 weeks gestation of pregnancy
CPT/HCPCS: 59025; 80048; 80053; 80076; 80307; 81001; 82570; 83735; 84156; 84450; 84460; 84550; 85007; 85025; 85027; 85461; 86850; 86900; 86901; 88307; 90384; G0481; J0690; J2274; J2405; J2590; J2790; J3475; J7120